=== PATIENT | female | born 1990 | race Caucasian/White ===

== ENCOUNTER 2020-09-22 13:10 | Emergency (ER) | payer OTHER ==
[2020-09-22 13:33] VITALS: BP 131/61
--- NOTE | 2020-09-22 14:05 | ED Physician Documentation ---
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 Since then she has had "dark" thoughts. No specific suicidal or homicidal ideation. She has not sought care for this before today. No history of depression or mood disorder prior to her sister's . Review of Systems Ten Systems: 10 systems reviewed and negative Cardiac: reports: Reviewed and negative Respiratory: reports: Reviewed and negative PD PAST MEDICAL HISTORY - Allergies Allergies/Adverse Reactions: Allergies Allergy/AdvReac Type Severity Reaction Status Date / Time No Known Drug Allergies Allergy Verified 09/22/20 13:33 PD ED PE NORMAL - Vitals Vital signs reviewed: Yes - General General: Alert and oriented X 3, Other (Tearful but appropriate) - HEENT HEENT: PERRL, EOMI - Neck Neck: Supple, no meningeal sign, No bony TTP - Cardiac Cardiac: RRR, No murmur - Respiratory Respiratory: No respiratory distress, Clear bilaterally - Abdomen Abdomen: Soft, Non tender - Back Back: No CVA TTP, No spinal TTP - Derm Derm: Normal color, Warm and dry - Extremities Extremities: No edema, No calf tenderness / cord - Neuro Neuro: Alert and oriented X 3, Normal speech Results - Vitals Vitals: Vital Signs - 24 hr 09/22/20 13:29 Temperature 37.0 C Heart Rate 83 Respiratory 16 Rate Blood Pressure 131/61 H O2 Saturation 100 Oxygen O2 Source Room air PD MEDICAL DECISION MAKING - ED course ED course: 30-year-old woman presents with depression/grief reaction. No SI or HI. Initially was amenable to social work consultation and telepsychiatric consultation but became tired of waiting. There is no indication for involuntary hold. Departure - Departure Disposition: 01 Home, Self Care Clinical Impression: Grief reaction Condition: Good Record reviewed to determine appropriate education?: Yes Instructions: ED Stress React, ED Depression Comments: [facility] Return if worsening. Forms: Activity restrictions
== END 2020-09-22 17:07 | disposition home or self-care (01) ==
LOC: ED 13:10
DX: F43.21 Adjustment disorder with depressed mood (principal)
CPT/HCPCS: 99282; 99283

== ENCOUNTER 2022-03-04 08:52 | Emergency (ER) | payer OTHER ==
[2022-03-04] MEDS ORDERED: IBUPROFEN 600 MG TABLET PO STA (09:31)
[2022-03-04] MEDS ORDERED: predniSONE 20 MG TABLET PO STA (09:31)
--- NOTE | 2022-03-04 09:33 | ED Physician Documentation ---
PD HPI HEENT - Stated complaint Stated Complaint: SOA - Chief complaint Chief Complaint: Heent - History obtained from History obtained from: Patient - Additional information Additional information: The patient comes to the emergency department chief complaint of sense of swelling in her left neck and throat for the last 2 to 3 days. Patient denies sore throat, rhinorrhea, cough, or difficulty breathing. No body aches or fevers. She has not been exposed to anybody with mono or URI that she knows of. The patient states that she has not been short of breath, but that she does start to panic when she feels a sense of something being in her throat. She states that she then gets a sense of shortness of breath, but in between, she is able to breathe without difficulty. No other complaints at this time. No history of thyroid issues. Review of Systems Ten Systems: 10 systems reviewed and negative Constitutional: reports: Reviewed and negative Eyes: reports: Reviewed and negative Ears: reports: Reviewed and negative Nose: reports: Reviewed and negative Throat: reports: Other (Fullness in throat) Cardiac: reports: Reviewed and negative Respiratory: reports: Reviewed and negative GI: reports: Reviewed and negative : reports: Reviewed and negative Skin: reports: Reviewed and negative Musculoskeletal: reports: Reviewed and negative Neurologic: reports: Reviewed and negative Psychiatric: reports: Anxiety Endocrine: reports: Reviewed and negative Immunocompromised: reports: Reviewed and negative PD PAST MEDICAL HISTORY - Past Medical History Past Medical History: Yes Cardiovascular: None Respiratory: None Neuro: None Endocrine/Autoimmune: None GI: None PROCESS COORDINATOR: None : None HEENT: None Psych: Depression, Anxiety Musculoskeletal: None Derm: None - Past Surgical History Past Surgical History: No - Present Medications Home Medications: Ambulatory Orders Medication Instructions Recorded Confirmed Sertraline [Zoloft] 50 mg PO DAILY 03/04/22 03/04/22 predniSONE [Deltasone] 40 mg PO DAILY 3 Days #6 tablet 03/04/22 - Allergies Allergies/Adverse Reactions: Allergies Allergy/AdvReac Type Severity Reaction Status Date / Time No Known Drug Allergies Allergy Verified 03/04/22 08:59 - Social History Does the pt smoke?: Yes Smoking Status: Current every day smoker Does the pt drink ETOH?: Yes ETOH Use: Beer Does the pt have substance abuse?: No - Immunizations Immunizations are current?: Yes PD ED PE NORMAL - Vitals Vital signs reviewed: Yes - General General: Alert and oriented X 3, No acute distress, Well developed/nourished - HEENT HEENT: Atraumatic, PERRL, EOMI, Moist mucous membranes, Pharynx benign - Neck Neck: Supple, no meningeal sign, No bony TTP, Other (Mild left anterior cervical lymphadenopathy with mild tenderness. Patient confirms this is where she feels the fullness. No stridor. ) - Cardiac Cardiac: RRR, No murmur, Strong equal pulses - Respiratory Respiratory: No respiratory distress, Clear bilaterally - Derm Derm: Normal color, Warm and dry, No rash - Extremities Extremities: No deformity, No edema, No calf tenderness / cord - Neuro Neuro: Alert and oriented X 3, account development specialist 2-12 intact, Normal speech - Psych Psych: Normal mood, Normal affect Results - Vitals Vitals: Oxygen O2 Source Room air - Rads (name of study) ST Neck XR Radiology: Final report received, EMP read indepedently, See rad report (neg) PD MEDICAL DECISION MAKING - ED course Complexity details: reviewed results, re-evaluated patient, considered differential, d/w patient ED course: I suspected that the lymphadenopathy that the patient had on the left was most likely the source of her symptoms. This patient seemed to be quite concerned about it so I did offer to get a soft tissue neck x-ray for the patient to evaluate for any enlargement or distortion of the soft tissue. In the meantime, the patient was given a dose of ibuprofen and a small dose of prednisone. Departure - Departure Disposition: 01 Home, Self Care Clinical Impression: Cervical lymphadenopathy Condition: Stable Instructions: Lymphadenopathy Prescriptions: predniSONE [Deltasone] 40 mg PO DAILY 3 Days #6 tablet Comments: Your x-ray looks great. You have an enlarged lymph node in the area where you are feeling the fullness, and this often can create a feeling of constriction or swelling in the throat. However, on x-ray, there is no distortion of your tissues and your airway is wide open. You may take ibuprofen for the next few days and a short course of prednisone to help bring the inflammation of the lymph node down. Most likely, you are fighting off a low level viral illness and this is triggered your lymph nodes to enlarge. It is expected to go down on its own once your body has cleared what ever it is fighting. If you continue to have the enlarged lymph node next week, you may follow-up with your primary care physician. Discharge Date/Time: 03/04/22 10:13
[2022-03-04 10:02] VITALS: BP 112/71
--- NOTE | 2022-03-04 10:09 | XRAY Report ---
PROCEDURE: Neck Soft Tissue INDICATIONS: airway feels swollen TECHNIQUE: 2 views of the neck were acquired. COMPARISON: None FINDINGS: Airway: The airway appears patent. Soft tissues: Prevertebral soft tissues are normal in thickness. The epiglottis and aryepiglottic f olds appear normal. No subglottic airway narrowing. No soft tissue gas. Bones: No suspicious bony lesions. Visualized cervical spine is normally aligned. IMPRESSION: No soft tissue thickening. No radiodense foreign body. Reviewed by: Solange Rod MD, PhD on 03/04/2022 10:08 AM PDT Approved by: Solange Rod MD, PhD on 03/04/2022 10:08 AM PDT Station ID: [id number]
== END 2022-03-04 10:13 | disposition home or self-care (01) ==
LOC: ED 08:52
DX: R59.0 Localized enlarged lymph nodes (principal); F17.200 Nicotine dependence, unspecified, uncomplicated
CPT/HCPCS: 70360; 99282; 99283; A9270; J7512